=== PATIENT | male | born 1955 | race Caucasian/White ===

== ENCOUNTER 2024-09-26 20:37 | Emergency (ER) | payer MEDICARE ==
[2024-09-26 21:57] LABS: BASOPHILS ABSOLUTE AUTO 0.06 K/uL (0.00-0.10); BASOPHILS PERCENT AUTO 0.7 % (0.1-1.3); EOSINOPHILS ABSOLUTE AUTO 0.11 K/uL (0.00-0.40); EOSINOPHILS PERCENT AUTO 1.3 % (0.0-5.4); HEMATOCRIT 41.8 % (38.4-49.7); HEMOGLOBIN 14.2 g/dL (12.9-16.9); IMMATURE GRAN ABSOLUTE AUTO 0.03 K/uL (0.00-0.23); IMMATURE GRAN PERCENT AUTO 0.4 % (0.0-0.7); LYMPHOCYTES ABSOLUTE AUTO 1.07 K/uL (0.8-3.3); MEAN CORPUSCULAR HEMOGLOBIN 31.8 pg (31.6-35.5); MEAN CORPUSCULAR VOLUME 93.7 fL (81.4-99.0); MONOCYTES ABSOLUTE AUTO 0.65 K/uL (0.20-0.90); MONOCYTES PERCENT AUTO 7.9 % (3.3-12.6); NEUTROPHILS ABSOLUTE AUTO 6.34 K/uL (1.0-7.6); NEUTROPHILS PERCENT AUTO 76.7 % (40.0-78.1); PLATELET COUNT,PLT 253 K/uL (130-375); RED BLOOD CELL COUNT 4.46 M/uL (4.14-5.76); WHITE BLOOD CELL COUNT,WBC 8.3 K/uL (3.2-11.0)
[2024-09-26] MEDS: Sodium Chloride 0.9% 1,000 ML IV ONE (22:04)
[2024-09-26] MEDS: Ondansetron 4 MG/2 ML SDV IVPUSH ONE (22:06)
[2024-09-26] MEDS: Sodium Chloride 0.9% 10 ML Syringe FLUSH PRN (22:09)
[2024-09-26 22:15] LABS: ANION GAP 12.6 mmol/L (5.0-14.0); CALCIUM 9.3 mg/dL (8.5-10.1); POTASSIUM,K 3.7 mmol/L (3.6-5.2); TSH ULTRASENSITIVE 1.629 uIU/mL (0.358-3.740)
[2024-09-26] MEDS: Meclizine 25 MG Tab PO ONE (23:13)
== END 2024-09-27 00:05 | disposition home or self-care (01) ==
LOC: JP.ED 20:37
DX: R42 Dizziness and giddiness (principal); E78.00 Pure hypercholesterolemia, unspecified; Z79.899 Other long term (current) drug therapy
CPT/HCPCS: 36415; 80048; 83735; 84443; 85025; 96361; 96374; 99284; A9270; J2405; J7030